=== PATIENT | male | born 2000 | race Caucasian/White ===

== ENCOUNTER 2021-11-20 08:43 | Emergency (ER) | payer OTHER, SELFPAY ==
[2021-11-20 08:50] VITALS: BP 130/70; PULSE 95; RESP 16; TEMP 37.2; O2SAT 100
--- NOTE | 2021-11-20 09:24 | ED.URI ---
HPI - URI/Sore Throat General Chief Complaint: Upper Respiratory Infection Stated Complaint: fever sore throat Time Seen by Provider: 11/20/21 09:26 Source: patient and RN notes reviewed Mode of arrival: ambulatory Limitations: no limitations History of Present Illness HPI Narrative: 20-year-old male presents concern for chills, fever, headache, decreased energy, nasal congestion, rhinorrhea, cough. Reports symptoms started last night. Reports he is taken Tylenol. He denies shortness of breath, nausea, vomiting, diarrhea. MD elicited complaint: cough and nasal congestion Related Data Home Medications Medication Instructions Recorded Confirmed levothyroxine 25 mcg tablet 25 mcg PO DAILY 11/20/21 11/20/21 Allergies Allergy/AdvReac Type Severity Reaction Status Date / Time No Known Allergies Allergy Verified 11/20/21 09:21 Review of Systems Review of Systems: CONSTITUTIONAL: Reports malaise, chills, fever. EYES: Denies visual changes, redness, or discharge. ENT: Reports rhinorrhea, congestion. Denies sinus pain, otalgia and sore throat. CARDIOVASCULAR: Denies chest pain, palpitations, or edema. RESPIRATORY: Reports cough. Denies dyspnea. GASTROINTESTINAL: Denies abdominal pain, nausea, vomiting, diarrhea SKIN: Denies rash or itching. MUSCULOSKELETAL: Reports myalgia. NEUROLOGIC: Reports headache. All systems reviewed & are unremarkable except as noted in HPI and below PMFSH Comments At time of signature, agree with nursing past medical, surgical, social and family history. There is no relevant family history pertinent to the presenting complaint Exam Narrative: GENERAL: Nontoxic-appearing and in no acute distress. HEAD: Normocephalic EYES: PERRLA, conjunctivae clear ENT: Nares clear, clear discharge. Mucous membranes moist. TM pearly salguero with sharp light reflex bilaterally; no tragal tenderness. Oropharynx not erythematous without lesions. Tonsils not enlarged and without exudate, no drooling, no hoarseness, no trismus, uvula midline. NECK: Supple. No lymphadenopathy CHEST: Clear to auscultation, breath sounds equal. No wheezing, rhonchi, rales, or stridor. No respiratory distress, speaks in full sentences. HEART: Regular rate and rhythm. No murmur heard. SKIN: Warm, dry, no rash. NEURO: Alert and oriented x3. PSYCH: Normal mood and affect Course Course Emergency Course: Patient is aware of diagnosis, understands and agrees to treatment plan. Anticipatory guidance given. Patient agrees to follow-up as directed and is aware of reasons to seek care at the emergency department. Portions of this record may have been created with voice recognition software Level of Care: Express Care Visit Vital Signs Vital signs: Vital Signs Temperature 99.0 F 11/20/21 08:50 Pulse Rate 95 11/20/21 08:50 Respiratory Rate 16 11/20/21 08:50 Blood Pressure 130/70 11/20/21 08:50 Pulse Oximetry 100 11/20/21 08:50 Oxygen Delivery Room Air 11/20/21 08:50 Temperature 99.0 F 11/20/21 08:50 Pulse Rate 95 11/20/21 08:50 Respiratory Rate 16 11/20/21 08:50 Blood Pressure 130/70 11/20/21 08:50 Pulse Oximetry 100 11/20/21 08:50 Oxygen Delivery Room Air 11/20/21 08:50 Reviewed. MDM - URI/Sore Throat MDM Narrative Medical decision making narrative: Differential diagnosis considered: Brown virus, strep pharyngitis, allergic rhinitis, upper respiratory tract infection, sinusitis, rhinosinusitis, nasopharyngitis. viral pharyngitis, otitis media, otitis externa, pneumonia, bronchitis, viral cough syndrome, viral syndrome, and influenza. Exam findings show no acute concerns or changes; patient is non-toxic appearing and is in no distress. Patient is appropriate for outpatient treatment and follow-up. Lab Data Attestation: I reviewed the patient's lab results. Critical Care Time Critical Care Time Critical Care Time: No Discharge Plan Discharge Clinical Impression: COVID Patient Dis
== END 2021-11-20 09:37 | disposition home or self-care (01) ==
PROVIDERS: Emergency Provider Nurse Practitioner
DX: U07.1 COVID-19 (principal); E03.9 Hypothyroidism, unspecified
CPT/HCPCS: 87426; 87804; 99213; C9803; G0463

== ENCOUNTER 2023-06-19 22:22 | Emergency (ER) | payer OTHER, SELFPAY ==
[2023-06-19 22:23] VITALS: BP 164/91; PULSE 95; RESP 20; TEMP 36.3; O2SAT 98
== END 2023-06-20 03:11 | disposition left against medical advice (07) ==
LOC: ANHED 06-20 01:50
DX: S61.002A Unspecified open wound of left thumb without damage to nail, initial encounter (principal)
CPT/HCPCS: 99199